=== PATIENT | male | born 1930 | race Caucasian/White ===

== ENCOUNTER 2017-07-21 22:01 | Inpatient (IN) | payer MEDICARE, MEDICAID ==
[~2017-07-21] VITALS: Ht 175.3 cm; Wt 72.6 kg
--- NOTE | 2017-07-21 22:45 | NUR ---
PATIENT BROUGHT IN BY PRIVATE AMBULANCE FROM [facility] ON 5150 HOLD FOR GD. PATIENT UPON ARRIVAL A/OX2,CALM AND COOPERATIVE. DENIES SOB,N/V OR ANY KIND OF PAIN
[2017-07-21 23:14] LABS: BASOPHILS # (AUTO) 0.1 K/uL (0.0-8.0); EOSINOPHILS # (AUTO) 0.4 K/uL (0.0-0.7); EOSINOPHILS % (AUTO) 4.7 % (0.0-7.0); HEMATOCRIT 33.8 % (40-50); HEMOGLOBIN 10.9 G/DL (14.0-18.0); LYMPHOCYTES # (AUTO) 1.2 K/UL (0.8-4.8); MEAN CORPUSCULAR HEMOGLOBIN 28.5 UUG (27.0-31.0); MEAN CORPUSCULAR HGB CONC 32 g/dL (32.0-37.0); MEAN CORPUSCULAR VOLUME 88.6 FL (82.0-92.0); MONOCYTES # (AUTO) 0.7 K/UL (0.1-1.30); MONOCYTES % (AUTO) 9.5 % (0.0-11.0); NEUTROPHILS # (AUTO) 5.2 K/UL (1.8-8.9); NEUTROPHILS % (AUTO) 68.8 % (38.5-71.5); PLATELET COUNT (AUTO) 295 K/UL (150-450); RED BLOOD CELL COUNT(AUTO) 3.81 MIL/UL (4.7-6.1); WHITE BLOOD COUNT (AUTO) 7.6 K/UL (4.0-11.2)
[2017-07-21 23:34] LABS: ALANINE AMINOTRANSFERASE 17 U/L (16-63); ALKALINE PHOSPHATASE 101 U/L (50-136); ASPARTATE AMINOTRANSFERASE 16 U/L (15-37); BILIRUBIN,DIRECT 0.1 mg/dL (0.0-0.2); BILIRUBIN,TOTAL 0.2 mg/dL (0.2-1.0); CARBON DIOXIDE 26 mmol/L (21-32); CHLORIDE 106 mmol/L (98-107); CREATININE 1.7 mg/dL (0.6-1.3); GLUCOSE 144 mg/dL (74-106); POTASSIUM 4.3 mmol/L (3.5-5.1); TOTAL PROTEIN, SERUM 7.2 g/dL (6.4-8.2); UREA NITROGEN, BLOOD 42 mg/dL (7-18)
[2017-07-21 23:35] LABS: ACETAMINOPHEN < 2.0 ug/mL (10-30)
[2017-07-21 23:39] LABS: THYROID STIMULATING HORMONE 1.641 mIU/mL (0.358-3.740)
[2017-07-21 23:40] LABS: ETHANOL < 3 MG/DL (0-0)
[2017-07-21] MEDS ORDERED: QUET50TA PO (23:56)
[2017-07-21] MEDS ORDERED: PANT40TA4 PO (23:56)
[2017-07-21] MEDS ORDERED: BISA5TAB10 PO (23:56)
[2017-07-21] MEDS ORDERED: ACET-2154 PO (23:56)
[2017-07-21] MEDS ORDERED: LISI-603 PO (23:56)
[2017-07-21] MEDS ORDERED: ZOLP5TAB8 PO (23:56)
[2017-07-21] MEDS ORDERED: DOCU-141 PO (23:56)
[2017-07-21 23:59] LABS: *BILIRUBIN,URIN NEGATIVE (NEGATIVE); *BLOOD, URINE NEGATIVE (NEGATIVE); *CLARITY,URINE CLEAR (CLEAR); *COLOR,URINE YELLOW (YELLOW); *KETONES,URINE NEGATIVE (NEGATIVE); *PROTEIN,URINE NEGATIVE (NEGATIVE); *UROBILINOGEN,URINE 0.2 E.U./dl (NORMAL); LEUKOCYTE ESTERASE ,URINE NEGATIVE (NEGATIVE); NITRITE, URINE NEGATIVE (NEGATIVE); PH,URINE 5.5 (5.0-8.0); UGLUCOSE NEGATIVE (NEGATIVE)
[2017-07-22 00:04] LABS: BACTERIA,URINE NONE SEEN /HPF (NONE SEEN); RBC,URINE 0-3 /HPF (0-3); SQUAMOUS EPITHELIAL CELL,UR FEW /HPF (NONE SEEN); WBC,URINE NONE SEEN /HPF (0-3)
--- NOTE | 2017-07-22 00:05 | NUR ---
MEDICALLY CLEARED BY DR ARREOLA
[2017-07-22] MEDS ORDERED: LORAZEPAM 0.5 MG TABLET PO PRN (00:30)
[2017-07-22] MEDS ORDERED: MAG HYDROX/AL HYDROX/SIMETH 30 ML LIQUID UDC PO PRN (00:30)
[2017-07-22] MEDS ORDERED: MAGNESIUM HYDROXIDE 30 ML LIQUID UDC PO PRN (00:30)
[2017-07-22] MEDS ORDERED: ACETAMINOPHEN 325 MG TABLET PO PRN ×2 (00:30→01:45)
--- NOTE | 2017-07-22 00:33 | NUR ---
TRANSFERED TO 2ND FLOOR VIA WHEELCHAIR ROOM 225 MHU OVERFLOW
--- NOTE | 2017-07-22 00:35 | NUR ---
RECEIVED PATIENT VIA GURNEY FROM ER WITH 1:1 SITTER AT BEDSIDE. PATIENT IS ALERT TO SELF ONLY. CONFUSED AND DISORIENTED BUT APPROPRIATE WHEN APPROACHED. PATIENT DENIES ANY PAIN OR DISCOMFORT. NO RESP.DISTRESS NOTED. VSS. PATIENT HAS VERY DRY FLAKY SKIN NOTED, GENERALIZED OVER BODY, MOSTLY ON LEGS AND ARMS. BILATERAL LOWER LEGS DRY AND FEW SMALL SCRATCHES NOTED FROM ITCHING. PROVIDED SAFE AND THERAPEUTIC ENVIRONMENT. SITTER AT BEDSIDE FOR SAFETY. BED ALARM ON. CALL LIGHT IN REACH. ALL NEEDS ATTENDED.
[2017-07-22 01:00] VITALS: BP 158/80
[2017-07-22] MEDS ORDERED: BISACODYL 5 MG TABLET.DR PO PRN (01:45)
[2017-07-22] MEDS ORDERED: DOCUSATE SODIUM 100 MG CAPSULE PO PRN (01:45)
--- NOTE | 2017-07-22 06:07 | NUR ---
PATIENT SLEPT A TOTAL OF 1 1/2 HOURS.
[2017-07-22] MEDS: PANTOPRAZOLE SODIUM 40 MG TABLET.DR PO SCH (07:36)
--- NOTE | 2017-07-22 07:40 | NUR ---
PT RECEIVED IN ROOM SITTING IN THE CHAIR QUIT AND CALMLY.SITTER AT BED SIDE.NO C/O PAIN NOTED .V/S ARE SABLE.
[2017-07-22 07:48] VITALS: BP 136/68
[2017-07-22] MEDS: LISINOPRIL 20 MG TABLET PO SCH (08:02)
[2017-07-22] MEDS: SERTRALINE HCL 50 MG TABLET PO SCH (12:33)
[2017-07-22] MEDS: QUETIAPINE FUMARATE 25 MG TABLET PO SCH ×2 (12:33→21:16)
[2017-07-22 15:49] VITALS: BP 144/70
--- NOTE | 2017-07-22 16:53 | NUR ---
Initial DC Plan: The patient resides at [facility] [[address] [place] [address]; [phone]]. JULIEN spoke with pt regarding potential discharge plan. Pt would like to return the facility. JULIEN will follow up with [facility] and daughter Claritza [[phone]] to discuss potential discharge plam. JULIEN will speak to MD, patient, and family regarding most appropriate discharge plan. SW will form a safe and proper discharge plan.
--- NOTE | 2017-07-22 18:08 | NUR ---
PT IN ROOM SITTING IN THE CHAIR QUIT AND CALMLY.SITTER AT BED SIDE.NO C/O PAIN NOTED .V/S ARE SABLE EAT HIS DINNER ,
--- NOTE | 2017-07-22 19:30 | NUR ---
Received pt in bed, appears to be sleeping. Sitter at bedside. No apparent distress noted. Safety measures and fall precautions maintained. Continue to monitor. Continue current plan of care.
[2017-07-22 19:38] VITALS: BP 94/54
[2017-07-23] MEDS: PANTOPRAZOLE SODIUM 40 MG TABLET.DR PO SCH (06:44)
--- NOTE | 2017-07-23 06:54 | NUR ---
Slept well. No complaint presented all night. Sitter 1:1 maintained and at bedside. Continue care as planned.
--- NOTE | 2017-07-23 07:10 | NUR ---
PATIENT RECEIVED IN ROOM RESTING WITH EYES CLOSED IN NO ACUTE DISTRESS. 1:1 SITTER AT BEDSIDE FOR SAFETY.
[2017-07-23 08:03] VITALS: BP 118/62
[2017-07-23] MEDS: QUETIAPINE FUMARATE 25 MG TABLET PO SCH ×2 (08:57→21:06)
[2017-07-23] MEDS: LISINOPRIL 20 MG TABLET PO SCH (08:57)
[2017-07-23] MEDS: SERTRALINE HCL 50 MG TABLET PO SCH (08:57)
[2017-07-23 11:18] VITALS: BP 93/51
[2017-07-23 16:18] VITALS: BP 151/59
--- NOTE | 2017-07-23 18:41 | NUR ---
END OF SHIFT NOTE: PATIENT IN NO ACUTE DISTRESS THROUGHOUT SHIFT. PATIENT CALM AND COOPERATIVE, NO BEHAVIORS OBSERVED. COMPLIANT WITH MEDICATION AND CARE. NEEDS MET BY STAFF. CONTINUES WITH 1:1 SITTER AT BEDSIDE FOR SAFETY.
[2017-07-23 19:00] VITALS: BP 135/69
--- NOTE | 2017-07-23 19:30 | NUR ---
Received pt in bed, appears to be sleeping. Sitter at bedside. No distress noted. Safety measures and fall precautions maintained. Will continue to monitor. Continue current plan of care.
[2017-07-24 05:46] VITALS: BP 121/75
[2017-07-24 06:34] LABS: *CREATININE,URINE 66.5 mg/dL (30-125)
[2017-07-24 06:38] LABS: BASOPHILS # (AUTO) 0.1 K/uL (0.0-8.0); BASOPHILS % (AUTO) 1.1 % (0.0-2.0); EOSINOPHILS # (AUTO) 0.5 K/uL (0.0-0.7); EOSINOPHILS % (AUTO) 7.9 % (0.0-7.0); HEMATOCRIT 35.4 % (40-50); HEMOGLOBIN 11.5 G/DL (14.0-18.0); LYMPHOCYTES # (AUTO) 1.5 K/UL (0.8-4.8); LYMPHOCYTES % (AUTO) 25.3 % (20.5-51.5); MEAN CORPUSCULAR HEMOGLOBIN 28.8 UUG (27.0-31.0); MEAN CORPUSCULAR HGB CONC 33 g/dL (32.0-37.0); MEAN CORPUSCULAR VOLUME 88.5 FL (82.0-92.0); MONOCYTES # (AUTO) 0.6 K/UL (0.1-1.30); MONOCYTES % (AUTO) 10.4 % (0.0-11.0); NEUTROPHILS # (AUTO) 3.1 K/UL (1.8-8.9); NEUTROPHILS % (AUTO) 55.3 % (38.5-71.5); PLATELET COUNT (AUTO) 302 K/UL (150-450); WHITE BLOOD COUNT (AUTO) 5.8 K/UL (4.0-11.2)
[2017-07-24 06:47] LABS: ALANINE AMINOTRANSFERASE 17 U/L (16-63); ALKALINE PHOSPHATASE 104 U/L (50-136); ASPARTATE AMINOTRANSFERASE 19 U/L (15-37); BILIRUBIN,TOTAL 0.4 mg/dL (0.2-1.0); CARBON DIOXIDE 30 mmol/L (21-32); CHLORIDE 103 mmol/L (98-107); CREATININE 1.1 mg/dL (0.6-1.3); GLUCOSE 83 mg/dL (74-106); MAGNESIUM 2.1 mg/dL (1.8-2.4); PHOSPHOROUS 3.3 mg/dL (2.5-4.9); POTASSIUM 4.3 mmol/L (3.5-5.1); TOTAL PROTEIN, SERUM 7.3 g/dL (6.4-8.2); UREA NITROGEN, BLOOD 19 mg/dL (7-18)
[2017-07-24] MEDS: PANTOPRAZOLE SODIUM 40 MG TABLET.DR PO SCH (07:07)
--- NOTE | 2017-07-24 08:00 | NUR ---
Pt alert and oriented x4. Discussed plan of care with pt re: fall precaution, pain management, and good nutrition. 1:1 sitter at bedside for safety. Pt agreeable with plan of care. Pt has dry scaly skin will notify md and ask for special lotion for skin dryness - applied regular lotion to legs. Noted dry scab on Left heel.
[2017-07-24] MEDS: QUETIAPINE FUMARATE 25 MG TABLET PO SCH ×2 (09:11→21:19)
[2017-07-24] MEDS: SERTRALINE HCL 50 MG TABLET PO SCH (09:12)
[2017-07-24 11:41] VITALS: BP 95/47
--- NOTE | 2017-07-24 18:28 | NUR ---
Plan of care effective. 72 hour held extended to 14 day hold by psychiatrist. No Fall noted, pt has good appetite. Call light is within reach.
[2017-07-24 20:11] VITALS: BP 135/64
[2017-07-24] MEDS: AMMONIUM LACTATE 12% LOTION 225 GM BOTTLE TP SCH (21:19)
[2017-07-25] MEDS: TEMAZEPAM 7.5 MG CAPSULE PO PRN (00:36)
--- NOTE | 2017-07-25 05:48 | NUR ---
PT SLEPT WELL, IN NO ACUTE DISTRESS. NO CHANGE OF BEHAVIOR OBSERVED. TREATMENT ON BILATERAL LOWER EXTREMITIES DONE ORDERED. 1:1 SITTER PROVIDED FOR SAFETY, BED ALARM ON. WILL CONTINUE TO MONITOR
[2017-07-25] MEDS: PANTOPRAZOLE SODIUM 40 MG TABLET.DR PO SCH (06:15)
[2017-07-25 07:25] VITALS: BP 163/64
[2017-07-25] MEDS: QUETIAPINE FUMARATE 25 MG TABLET PO SCH ×2 (08:32→21:03)
[2017-07-25] MEDS: SERTRALINE HCL 50 MG TABLET PO SCH (08:49)
[2017-07-25] MEDS: AMMONIUM LACTATE 12% LOTION 225 GM BOTTLE TP SCH ×2 (09:00→18:39)
[2017-07-25] MEDS: LISINOPRIL 10 MG TABLET PO SCH (12:18)
[2017-07-25 15:55] VITALS: BP 115/56
[2017-07-25 20:00] VITALS: BP 123/58
[2017-07-26 05:50] VITALS: BP 113/54
--- NOTE | 2017-07-26 05:55 | NUR ---
pt alert ,oriented x2, on 14 day hold with sitter, pt slept well, no behaviorial changes, ambulates to bathroom and voids, denies any pain. kept clean and safe.vss,afebrile.
[2017-07-26 06:45] LABS: BASOPHILS % (AUTO) 0.9 % (0.0-2.0); EOSINOPHILS % (AUTO) 5.6 % (0.0-7.0); HEMATOCRIT 36.5 % (40-50); HEMOGLOBIN 12.1 G/DL (14.0-18.0); LYMPHOCYTES % (AUTO) 20.8 % (20.5-51.5); MEAN CORPUSCULAR HEMOGLOBIN 29.4 UUG (27.0-31.0); MEAN CORPUSCULAR HGB CONC 33 g/dL (32.0-37.0); MEAN CORPUSCULAR VOLUME 89.2 FL (82.0-92.0); MONOCYTES % (AUTO) 9.5 % (0.0-11.0); NEUTROPHILS % (AUTO) 63.2 % (38.5-71.5); PLATELET COUNT (AUTO) 303 K/UL (150-450); RED BLOOD CELL COUNT(AUTO) 4.09 MIL/UL (4.7-6.1); WHITE BLOOD COUNT (AUTO) 6.6 K/UL (4.0-11.2)
[2017-07-26 06:46] LABS: BASOPHILS # (AUTO) 0.1 K/uL (0.0-8.0); EOSINOPHILS # (AUTO) 0.4 K/uL (0.0-0.7); LYMPHOCYTES # (AUTO) 1.4 K/UL (0.8-4.8); MONOCYTES # (AUTO) 0.6 K/UL (0.1-1.30); NEUTROPHILS # (AUTO) 4.1 K/UL (1.8-8.9)
[2017-07-26] MEDS: PANTOPRAZOLE SODIUM 40 MG TABLET.DR PO SCH (06:53)
[2017-07-26 07:00] LABS: ALANINE AMINOTRANSFERASE 17 U/L (16-63); ALKALINE PHOSPHATASE 116 U/L (50-136); ASPARTATE AMINOTRANSFERASE 18 U/L (15-37); BILIRUBIN,TOTAL 0.5 mg/dL (0.2-1.0); CARBON DIOXIDE 28 mmol/L (21-32); CHLORIDE 104 mmol/L (98-107); CREATININE 1.2 mg/dL (0.6-1.3); GLUCOSE 84 mg/dL (74-106); POTASSIUM 4.4 mmol/L (3.5-5.1); TOTAL PROTEIN, SERUM 7.4 g/dL (6.4-8.2); UREA NITROGEN, BLOOD 23 mg/dL (7-18)
[2017-07-26 08:02] VITALS: BP 116/58
[2017-07-26] MEDS: SERTRALINE HCL 50 MG TABLET PO SCH (08:41)
[2017-07-26] MEDS: QUETIAPINE FUMARATE 25 MG TABLET PO SCH ×3 (08:42→20:11)
[2017-07-26] MEDS: AMMONIUM LACTATE 12% LOTION 225 GM BOTTLE TP SCH ×2 (08:48→17:25)
[2017-07-26] MEDS: LISINOPRIL 10 MG TABLET PO SCH ×2 (09:00→11:16)
[2017-07-26 11:20] VITALS: BP 110/61
--- NOTE | 2017-07-26 18:16 | NUR ---
Patient's condition remains the same. Lachydrin applied to patient's lower extremities for dried, flaky skin. Patient has a scab located right proximal heel, photo taken with measurement, and added into physical chart. Dose of Seroquel was decreased to 12.5 mg PO, tablet cut in half and given to patient. No BM in past 2 days so Dulcolax given to patient and was able to have a BM. Patient did not have any episodes of psychosis throughout shift.
--- NOTE | 2017-07-26 18:31 | NUR ---
Patient urinated 7 times throughout shift and total output of 660 cc.
[2017-07-26 19:00] VITALS: BP 112/61
--- NOTE | 2017-07-26 19:30 | NUR ---
PT RECEIVED IN BED, AWAKE. A/OX2. ABLE TO MAKE NEEDS KNOWN. 1:1 SITTER AT BEDSIDE FOR SAFETY. V/S STABLE. IN NO ACUTE DISTRESS. NO C/O OF PAIN AT THIS TIME. SAFETY MEASURES IMPLEMENTED. CALL LIGHT WITHIN REACH.
[2017-07-26] MEDS: TEMAZEPAM 7.5 MG CAPSULE PO PRN (21:02)
--- NOTE | 2017-07-26 21:12 | NUR ---
PT REQUESTED SLEEP AID. ADMINISTERED SLEEPING MEDICATION ORDERED. PT IN STABLE CONDITION. WILL CONT TO MONITOR.
[2017-07-27 04:00] VITALS: BP 102/57
--- NOTE | 2017-07-27 06:05 | NUR ---
END OF SHIFT NOTES. PT SLEPT WELL THROUGHOUT SHIFT. 1:1 SITTER AT BEDSIDE FOR SAFETY. IN STABLE CONDITION. SAFETY MAINTAINED. CALL LIGHT WITHIN REACH.
[2017-07-27] MEDS: PANTOPRAZOLE SODIUM 40 MG TABLET.DR PO SCH (06:21)
[2017-07-27 07:55] VITALS: BP 112/73
[2017-07-27] MEDS: QUETIAPINE FUMARATE 25 MG TABLET PO SCH ×2 (08:09→12:40)
[2017-07-27] MEDS: LISINOPRIL 10 MG TABLET PO SCH (08:09)
[2017-07-27] MEDS: SERTRALINE HCL 50 MG TABLET PO SCH (08:09)
[2017-07-27] MEDS: AMMONIUM LACTATE 12% LOTION 225 GM BOTTLE TP SCH ×2 (08:10→16:14)
--- NOTE | 2017-07-27 09:50 | NUR ---
WOUND CARE CONSULT: PT PRESENTS WITH DRY STABLE ESCHAR TO RT HEEL, PRESENT ON ADMISSION. PT NOTED TO HAVE VERY DRY SKIN TO LEGS AND FEET. RECOMMENDATIONS MADE FOR SKIN PROTECTION. DISCUSSED WITH NURSING STAFF. PT IS AMBULATORY AND CONTINENT. BAKARI SCORE CURRENTLY 21. WILL SEE PRN. WHITLOCK IN AGREEMENT WITH PLAN OF CARE. Addendum: 07/27/17 at 0940 by DWIGHT SALINAS RN Amended: Links added.
[2017-07-27] MEDS ORDERED: MINERAL OIL/PETROLATUM,WHITE 57 GM TUBE TOP PRN (10:00)
--- NOTE | 2017-07-27 13:06 | NUR ---
DC Note: Patient will be discharged to [facility] [[address] [place] [address]; ] via ambulance at 2:30pm. JULIEN spoke with [employer] at [facility] to confirm discharge plan. JULIEN left a voicemail for pts daughter Claritza [[phone]] with details of pt's discharge plan. Pt will follow up with Dr. Dick ([employer]) [[phone]] and Dr. Vieira (Psychiatrist) [[phone]].
[2017-07-27 15:43] VITALS: BP 115/57
--- NOTE | 2017-07-27 16:00 | NUR ---
REPORT GIVEN TO VANDANA MUÑOZ TO [facility]
--- NOTE | 2017-07-27 17:40 | NUR ---
D/C ORDERS RECEIVED NOTED AND CARRIED OUT.D/C INSTRUCTIONS AND RN REPORT GIVEN TO THE AMBULANCES CREW,PT LEFT THE FACILITY BY AMBULANCES IN STABLE CONDITION.
== END 2017-07-27 17:50 | DRG 885 ==
LOC: ER 22:02 → MED 23:00 → GPSOV 07-22 01:21
PROVIDERS: ADMIT Psychiatry & Neurology Psychosomatic Medicine
DX: F29 Unspecified psychosis not due to a substance or known physiological condition (principal); N17.0 Acute kidney failure with tubular necrosis; N18.9 Chronic kidney disease, unspecified; D68.59 Other primary thrombophilia; I42.9 Cardiomyopathy, unspecified; F03.90 Unspecified dementia, unspecified severity, without behavioral disturbance, psychotic disturbance, mood disturbance, and anxiety; G62.9 Polyneuropathy, unspecified; J44.9 Chronic obstructive pulmonary disease, unspecified; I25.10 Atherosclerotic heart disease of native coronary artery without angina pectoris; I73.9 Peripheral vascular disease, unspecified; Z79.899 Other long term (current) drug therapy; Z86.73 Personal history of transient ischemic attack (TIA), and cerebral infarction without residual deficits; Z91.81 History of falling; F32.9 Major depressive disorder, single episode, unspecified; Z73.6 Limitation of activities due to disability; F20.9 Schizophrenia, unspecified; I12.9 Hypertensive chronic kidney disease with stage 1 through stage 4 chronic kidney disease, or unspecified chronic kidney disease; Z88.8 Allergy status to other drugs, medicaments and biological substances
CPT/HCPCS: 36415; 83735; 84100; 84300; 84443; 85025; 93005; A4663; G0480; G0480-TC